=== PATIENT | female | born 1970 | race African-American/Black ===

== ENCOUNTER → 2016-03-04 | Emergency (ER) | payer OTHER ==
[~2016-03-04] MED LIST: FAMOTIDINE 20 MG/50 ML IVPB 50 ML IVPB ONE; ONDANSETRON 4 MG/2 ML VIAL IVPUSH ONE; ONDANSETRON 4 MG/2 ML VIAL ONE; SODIUM CHLORIDE 1,000 ML IV ONE
[2016-03-04 13:03] VITALS: BMI 23.0
--- NOTE | 2016-03-04 13:28 | PDOC ---
History of Present Illness - General History Source: Patient Exam Limitations: No Limitations - History of Present Illness Initial Comments: 03/04/16 13:56 The patient is a 45-year-old woman with no past medical history who presents to the emergency department via walk-in for further evaluation of abdominal pain since last night. Patient states that she experienced a sudden onset of intermittent abdominal cramping with associated nausea, vomiting (non-bloody;non -bilious) and loose watery stools(reported 6 episodes). Patient reports a decreased appetite, as she vomits everything she eats. No new foods and recent travel. 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 Patient presents to the ER, as she state her symptoms have worsened as she now feels generally fatigued and dizzy. She denies fever, chills, diaphoresis, generalized weakness. She denies chest pain, shortness of breath, cough She denies headache, visual changes, neck pain, back pain. She denies dysuria, hematuria, urinary frequency and urgency, flank pain, vaginal discharge/vaginal bleeding Allergies: None Known Past Surgical History: None reported Social History: No tobacco, ETOH and recreational drug use Primary Care Physician: Lauren Acosta [phone] <Kia Ye - Last Filed: 03/04/16 14:12> <Rei River - Last Filed: 03/04/16 15:51> - General Chief Complaint: Vomiting/Diarrhea Stated Complaint: VOMIT, DIARRHEA, ABD PAIN Time Seen by Provider: 03/04/16 13:26 Past History <Kia Ye - Last Filed: 03/04/16 14:12> - Past Medical History Other medical history: NONE - Psycho/Social/Smoking Cessation Hx Suicidal Ideation: No Smoking History: Smoker current status UNK Have you smoked in the past 12 months: No Hx Alcohol Use: No Drug/Substance Use Hx: No Substance Use Type: None <Rei River - Last Filed: 03/04/16 15:51> - Past Medical History Allergies/Adverse Reactions: Allergies Allergy/AdvReac Type Severity Reaction Status Date / Time No Known Allergies Allergy Verified 03/04/16 13:02 Home Medications: Ambulatory Orders Ferrous Sulfate 325 mg PO DAILY 10/11/15 [id number]/Iron Fumarate/FA/Dss [ 19 Tablet] 1 each PO DAILY 10/11/15 Review of Systems - Review of Systems Constitutional: Yes: Chills. No: Fever Respiratory: No: Cough, Shortness of Breath Cardiac (ROS): No: Chest Pain ABD/GI: Yes: Diarrhea, Nausea, Vomiting : No: Dysuria All Other Systems: Reviewed and Negative <Rei River - Last Filed: 03/04/16 15:51> *Physical Exam - Vital Signs Last Vital Signs Temp Pulse Resp BP Pulse Ox 97.2 F L 85 20 109/64 100 03/04/16 13:00 03/04/16 13:00 03/04/16 13:00 03/04/16 13:00 03/04/16 13:00 - Physical Exam Comments: 03/04/16 13:56 GENERAL: The patient is awake, alert, and fully oriented, in no acute distress. HEAD: Normal with no signs of trauma. EYES: Pupils equal, round and reactive to light, extraocular movements intact, sclera anicteric, conjunctiva clear with no pallor. ENT: Ears normal, nares patent, oropharynx clear without exudates. Moist mucous membranes. NECK: Normal range of motion, supple without lymphadenopathy, JVD, or masses. LUNGS: Breath sounds equal, clear to auscultation bilaterally. No wheeze/ crackles. HEART: Tachycardic, regular rate and rhythm, normal S1 and S2 without murmur or rub. ABDOMEN: Soft. There is some diffuse abdominal discomfort but no focal tenderness. Nondistended. BS wnl. No guarding or rebound. No palpable masses. No hepatosplenomegaly. EXTREMITIES: Normal range of motion, no edema. No clubbing or cyanosis. No cords, erythema, or tenderness. NEUROLOGICAL: Cranial nerves II through XII grossly intact. Normal speech. PSYCH: Normal mood, normal affect. SKIN: Warm, Dry, normal turgor, no rashes or lesions noted <Kia Ye - Last Filed: 03/04/16 14:12> - Vital Signs Last Vital Signs Temp Pulse Resp BP Pulse Ox 97.2 F L 85 20 109/64 100 03/04/16 13:00 03/04/16 13:00 03/04/16 13:00 03/04/16 13:00 03/04/16 13:00 <Rei River - Last Filed: 03/04/16 15:51> ED Treatment Course - LABORATORY CBC & Chemistry Diagram: 03/04/16 14:40 03/04/16 14:40 <Rei River - Last Filed: 03/04/16 15:51> Medical Decision Making - Medical Decision Making 03/04/16 14:06 A portion of this note was documented by scribe services under my direction. I have reviewed the details of the note, within reason, and agree with the documentation with the following case summary and management plan written by me. Healthy 45-year-old female presents with nausea/vomiting/diarrhea/generalized crampy abdominal pain since last night, associated with chills. No localizing or persistent abdominal pain, last emesis was about one hour ago. 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 Vital signs normal. Diffuse discomfort to palpation without guarding or rebound, no right upper quadrant or right lower quadrant tenderness specifically 45-year-old healthy female with gastroenteritis-type symptoms, no findings to suggest focal infectious process. Vital signs are normal. No red flags on history or physical exam. IV fluid rehydration, antiemetic, antacid Reassess 03/04/16 14:23 Urine incidentally positive. Pt unaware. Will check labs, beta level. Reassess 03/04/16 15:43 Labs are within normal limits, patient looks and feels well, is sitting up smiling and tolerating by mouth. Abdomen is benign. HCG is 88, too early to see anything on ultrasound. Unclear LMP. Agrees with d/c plan, understands need to f/u beta as outpt. No bleeding/pain, emergent sono not indicated. Understands return criteria. <Rei River - Last Filed: 03/04/16 15:51> *DC/Admit/Observation/Transfer <Kia Ye - Last Filed: 03/04/16 14:12> <Rei River - Last Filed: 03/04/16 15:51> Diagnosis at time of Disposition: Gastroenteritis Qualifiers: Weeks of gestation: unspecified Qualified Code(s): Z33.1 - state, incidental - Discharge Dispostion Disposition: HOME Condition at time of disposition: Improved - Referrals Referrals: Lauren Williamson MD [Primary Care Provider] - - Patient Instructions Printed Discharge Instructions: DI for Viral Gastroenteritis -- Adult, Managing Symptoms of Additional Instructions: Activity as tolerated. Stay hydrated. Your symptoms are likely due to a viral intestinal infection. Blood tests showed no acute abnormalities. As discussed, it appears that you have a very early ! The hormone level (hCG) is 88, and this needs to be repeated within the next week. You should follow up with your primary doctor and [facility] as soon as possible regarding today's emergency department visit. Return to the emergency department for any new or concerning symptoms, particularly persistent vomiting or dehydration, abdominal pain, vaginal bleeding or discharge.
[2016-03-04 14:55] LABS: BASOPHIL 0.4 % (0-2.0); MCH 21.2 pg (25.7-33.7); MCHC 31.8 g/dl (32.0-36.0); MEAN CELL VOLUME 66.7 fl (80-96); MEAN PLT VOLUME 9.5 fl (7.5-11.1); NEUTROPHILS 77.4 % (42.8-82.8); PLATELET COUNT 148 K/MM3 (134-434); RDW 14.6 % (11.6-15.6); WHITE BLOOD COUNT 4.6 K/mm3 (4.0-10.0)
[2016-03-04 15:25] LABS: ALBUMIN 3.6 g/dl (3.4-5.0); ANION GAP 8 (8-16); BILIRUBIN,TOTAL 0.5 mg/dL (0.2-1.0); CALCIUM 8.2 mg/dL (8.5-10.1); CO2 26 mmol/L (21-32); CREATININE 0.6 mg/dL (0.55-1.02); GLUCOSE,RANDOM 81 mg/dL (74-106); SGOT/AST 21 U/L (15-37); SGPT/ALT 30 U/L (12-78); TOT PROT 6.7 g/dl (6.4-8.2)
[2016-03-04 15:28] LABS: ALK PHOS 48 U/L (45-117)
[2016-03-04 15:57] VITALS: BP 135/80; PULSE 71; TEMP 98.3
[2016-03-04 18:48] LABS: ANISOCYTOSIS 2+; HYPOCHROMIA 2+; MICROCYTOSIS 2+
== END | disposition home or self-care (01) ==
LOC: JER 12:48
PROC: 3E033GC Introduction of Other Therapeutic Substance into Peripheral Vein, Percutaneous Approach (ICD-10-PCS; principal; 2016-03-04)
PROC: 3E0337Z Introduction of Electrolytic and Water Balance Substance into Peripheral Vein, Percutaneous Approach (ICD-10-PCS; 2016-03-04)
DX: K52.9 Noninfective gastroenteritis and colitis, unspecified (principal); Z33.1 Pregnant state, incidental
CPT/HCPCS: 36415; 80053; 84702; 84703; 85025; 96361; 96365; 96375; 99283-25

== ENCOUNTER → 2016-11-23 | Day surgery (SDC) | payer OTHER ==
--- NOTE | 2016-11-24 17:53 | PATH ---
Cytology Non-Gynecological Report Patient Name: JAN PAL [facility]. Rec. #: [id number] /Age/Gender: 1970 (Age: 45) / F Account: [id number] Location: RADIOLOGY Taken: 11/23/2016 Received: 11/23/2016 Reported: 11/24/2016 Physicians: Era Vazquez M.D. Specimen(s) Received RIGHT ISTHMUS Clinical History Right isthmus 1.80 x 1.11 x 0.64 cm Final Diagnosis THYROID, RIGHT ISTHMUS, FINE NEEDLE ASPIRATION: SATISFACTORY FOR EVALUATION BETHESDA CATEGORY II: BENIGN (NO MALIGNANT CELLS IDENTIFIED) CYTOLOGIC FINDINGS ARE CONSISTENT WITH A BENIGN FOLLICULAR NODULE (ADENOMATOID NODULE) BENIGN FOLLICULAR CELLS AND COLLOID PRESENT. Comment: Recommend correlation with clinical findings and follow up as clinically indicated. Electronically Signed Anastacio Jones M.D. Gross Description Received are eight direct smears, four of which are air-dried and Diff-Quik stained, and four of which are alcohol fixed and Pap stained. Also received is 20 ml of bloody formalin from which one cellblock is prepared.
== END | disposition home or self-care (01) ==
LOC: JRADIR 09:43
PROVIDERS: ATTEND Otolaryngology Facial Plastic Surgery
PROC: 0G9K3ZX Drainage of Thyroid Gland, Percutaneous Approach, Diagnostic (ICD-10-PCS; principal; 2016-11-23)
PROC: BG43ZZZ Ultrasonography of Parathyroid Glands (ICD-10-PCS; 2016-11-23)
DX: E04.1 Nontoxic single thyroid nodule (principal)
CPT/HCPCS: 76942; 88173; 88305-TC

== ENCOUNTER → 2016-12-01 | Day surgery (SDC) | payer OTHER ==
--- NOTE | 2016-12-03 09:07 | PATH ---
Cytology Non-Gynecological Report Patient Name: JAN PAL [facility]. Rec. #: [id number] /Age/Gender: 1970 (Age: 45) / F Account: [id number] Location: RADIOLOGY Taken: 12/01/2016 Received: 12/01/2016 Reported: 12/03/2016 Physicians: Era Adorno M.D. Specimen(s) Received RIGHT THYROID FNA Clinical History Right nodule, 1.2 x 0.9 x 0.58 cm Final Diagnosis THYROID, RIGHT, FINE NEEDLE ASPIRATION: SATISFACTORY FOR EVALUATION BETHESDA CLASS II: BENIGN. CYTOLOGIC FINDINGS ARE CONSISTENT WITH A BENIGN FOLLICULAR NODULE. FEW CLUSTERS OF BENIGN FOLLICULAR CELLS AND SCANT COLLOID PRESENT. Electronically Signed Shirlene Gross M.D. Gross Description Received are eight direct smears, four of which are air-dried and Diff-Quik stained, and four of which are alcohol fixed and Pap stained. Also received is 20 ml of bloody formalin from which one cellblock is prepared.
== END | disposition home or self-care (01) ==
LOC: JRADIR 09:06
PROVIDERS: ATTEND Otolaryngology Facial Plastic Surgery
PROC: 0G9H3ZX Drainage of Right Thyroid Gland Lobe, Percutaneous Approach, Diagnostic (ICD-10-PCS; principal; 2016-12-01)
DX: E04.1 Nontoxic single thyroid nodule (principal)
CPT/HCPCS: 76942; 88173; 88305-TC

== ENCOUNTER 2017-04-22 11:38 | Emergency (ER) | payer OTHER ==
[2017-04-22 11:53] VITALS: BP 98/66; PULSE 89; TEMP 97.7; BMI 24.9
[2017-04-22 12:35] LABS: HCG,QUALITATIVE URINE NEGATIVE
[2017-04-22 12:36] LABS: URINE APPEARANCE CLEAR; URINE BILIRUBIN NEGATIVE (NEGATIVE); URINE BLOOD NEGATIVE (NEGATIVE); URINE COLOR LTYELLOW; URINE GLUCOSE (UA) NEGATIVE (NEGATIVE); URINE KETONE NEGATIVE (NEGATIVE); URINE LEUK ESTERASE NEGATIVE (NEGATIVE); URINE NITRITE NEGATIVE (NEGATIVE); URINE PROTEIN NEGATIVE (NEGATIVE); URINE UROBILINOGEN NEGATIVE mg/dL (0.2-1.0)
[2017-04-22] MEDS ORDERED: PANTOPRAZOLE SODIUM 40 MG in SODIUM CHLORIDE 100 ML IVPB ONE (12:37)
[2017-04-22] MEDS ORDERED: ONDANSETRON 4 MG/2 ML VIAL IVPUSH ONE (12:37)
[2017-04-22] MEDS ORDERED: SODIUM CHLORIDE 1,000 ML IV STA (12:37)
[2017-04-22 12:56] LABS: BASO % 0.7 % (0-2.0); EOS % 5.4 % (0-4.5); HEMATOCRIT 30.5 % (32.4-45.2); HEMOGLOBIN 9.8 GM/dL (10.7-15.3); LYMPH % 30.4 % (8-40); MCHC 32.2 g/dl (32.0-36.0); MONO % 18.7 % (3.8-10.2); NEUT % 44.8 % (42.8-82.8); PLATELET COUNT 180 K/MM3 (134-434); RBC 4.68 M/mm3 (3.60-5.2); RDW 16.5 % (11.6-15.6); WHITE BLOOD COUNT 2.1 K/mm3 (4.0-10.0)
[2017-04-22] MEDS ORDERED: ONDANSETRON 4 MG/2 ML VIAL ONE (12:56)
[2017-04-22] MEDS ORDERED: PANTOPRAZOLE SODIUM 40 MG VIAL ONE (12:56)
--- NOTE | 2017-04-22 13:22 | PDOC ---
History of Present Illness - General Chief Complaint: Nausea/Vomiting Stated Complaint: FEVER, MIGRAINE HEADACHE, NAUSEA Time Seen by Provider: 04/22/17 12:09 History Source: Patient Exam Limitations: No Limitations - History of Present Illness Travel History: No Initial Comments: 04/22/17 12:09 46 year-old female presents to the ED with complaints of subjective fevers for the past 3 days accompanied with nausea, vomiting and episodes of brown watery diarrhea. Patient denies weakness, headache, abdominal pain, urinary complaints or irregular menses. 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 Patient denies recent travel, medical history or recent illness. Timing/Duration: reports: intermittent Aggravating Factors: improves with: None Alleviating Factors: improves with: None Past History - Past Medical History Allergies/Adverse Reactions: Allergies Allergy/AdvReac Type Severity Reaction Status Date / Time No Known Allergies Allergy Verified 04/22/17 11:49 Home Medications: Ambulatory Orders Ondansetron HCl [Zofran] 4 mg PO TID PRN #12 tablet 04/22/17 COPD: No - Immunization History Immunization Up to Date: Yes - Suicide/Smoking/Psychosocial Hx Smoking History: Smoker current status UNK Have you smoked in the past 12 months: No Hx Alcohol Use: No Drug/Substance Use Hx: No Substance Use Type: None Patient Lives Alone: No Lives with/in: spouse/SO Review of Systems - Review of Systems Able to Perform ROS?: No Constitutional: No: Symptoms Reported HEENTM: No: Symptoms Reported Respiratory: No: Symptoms reported Cardiac (ROS): No: Symptoms Reported ABD/GI: Yes: Diarrhea, Nausea, Vomiting Musculoskeletal: No: Symptoms Reported Integumentary: No: Symptoms Reported Neurological: No: Symptoms reported *Physical Exam - Vital Signs Last Vital Signs Temp Pulse Resp BP Pulse Ox 97.7 F 89 18 98/66 100 04/22/17 11:49 04/22/17 11:49 04/22/17 11:49 04/22/17 11:49 04/22/17 11:49 - Physical Exam General Appearance: Yes: Nourished, Appropriately Dressed. No: Apparent Distress Neck: positive: Normal Thyroid, Supple Respiratory/Chest: positive: Lungs Clear, Normal Breath Sounds. negative: Respiratory Distress, Accessory Muscle Use Cardiovascular: positive: Regular Rhythm, Regular Rate. negative: Murmur Gastrointestinal/Abdominal: positive: Soft. negative: Tenderness Integumentary: positive: Normal Color, Warm, Moist Neurologic: positive: Motor Strength 5/5 (ambulatory) ED Treatment Course - LABORATORY CBC & Chemistry Diagram: 04/22/17 12:54 04/22/17 12:54 - ADDITIONAL ORDERS Additional order review: Laboratory Results 04/22/17 12:24 Urine Color Ltyellow Urine Appearance Clear Urine pH 7.0 D Ur Specific [place] 1.017 Urine Protein Negative Urine Glucose (UA) Negative Urine Ketones Negative Urine Blood Negative Urine Nitrite Negative Urine Bilirubin Negative Urine Urobilinogen Negative Ur Leukocyte Esterase Negative Urine HCG, Qual Negative 04/22/17 12:54 RBC 4.68 MCV 65.0 L MCHC 32.2 RDW 16.5 H D MPV 9.0 Neutrophils % 44.8 D Lymphocytes % 30.4 D Monocytes % 18.7 H D Eosinophils % 5.4 H D Basophils % 0.7 - Medications Given in the ED: ED Medications Discontinued Medications Generic Name Dose Route Start Last Admin Trade Name Freq PRN Reason Stop Dose Admin Pantoprazole Sodium 40 mg/ 100 mls @ 200 mls/hr 04/22/17 12:37 04/22/17 13:01 Sodium Chloride IVPB 04/22/17 13:06 200 mls/hr ONCE ONE Administration Ondansetron HCl 4 mg 04/22/17 12:37 04/22/17 13:01 Zofran Injection IVPUSH 04/22/17 12:38 4 mg ONCE ONE Administration Medical Decision Making - Medical Decision Making 04/22/17 13:28 Patient with nausea vomiting and diarrhea so she did with subjective fever for the past few days. Patient on exam had no abdominal tenderness or abnormal vital signs. Differential diagnoses: gastroenteritis, gastritis, cholecystitis, , an electrolyte imbalance. 04/22/17 13:38 Laboratory Tests 10/12/15 03/04/16 04/22/17 00:18 14:40 12:24 WBC 5.6 4.6 Hgb 11.2 10.8 Hct 34.0 RDW Neutrophils % Sodium Potassium Chloride Carbon Dioxide Anion Gap BUN Creatinine Random Glucose Calcium Magnesium AST ALT Lipase Urine Ketones Negative Urine Nitrite Negative Urine HCG, Qual Negative 04/22/17 04/22/17 12:54 12:54 WBC 2.1 L D Hgb Hct 30.5 L RDW 16.5 H D Neutrophils % 44.8 D Sodium 141 Potassium 4.0 Chloride 107 Carbon Dioxide 28 Anion Gap 6 L BUN 9 Creatinine 0.6 Random Glucose 92 Calcium 8.8 Magnesium 2.0 AST 20 ALT 20 Lipase 339 Urine Ketones Urine Nitrite Urine HCG, Qual Patient states history of fibroids and just completed her menses which she states was approximately 10 days long but denies dizziness or weakness presently. Patient also states is supposed to be taking iron for her anemia but often does not take it secondary to constipation and abdominal pain 04/22/17 15:03 Patient states feeling much better and tolerated saltine crackers without complaints. Patient will be discharged, Zofran and a work note for tomorrow *DC/Admit/Observation/Transfer Diagnosis at time of Disposition: Gastroenteritis - Discharge Dispostion Disposition: HOME Condition at time of disposition: Improved - Prescriptions Prescriptions: Ondansetron HCl [Zofran] 4 mg PO TID PRN #12 tablet PRN Reason: Nausea And/Or Vomiting - Referrals Referrals: ON STAFF,NOT [Primary Care Provider] - - Patient Instructions Printed Discharge Instructions: DI for Iron Deficiency Anemia-Adult, DI for Vomiting -- Adult Additional Instructions: Please take Zofran as needed for nausea. Please eat bland food for the next 2 days and advance as tolerated. Please also follow-up with your doctor and take copy of your labs with you. Please also take your iron pills as previously prescribed. - Post Discharge Activity Forms/Work/School Notes: Back to Work
[2017-04-22 13:26] LABS: ALBUMIN 3.4 g/dl (3.4-5.0); ANION GAP 6 (8-16); BLOOD UREA NITROGEN 9 mg/dL (7-18); CALCIUM 8.8 mg/dL (8.5-10.1); CHLORIDE 107 mmol/L (98-107); CO2 28 mmol/L (21-32); CREATININE 0.6 mg/dL (0.55-1.02); GLUCOSE,RANDOM 92 mg/dL (74-106); SGOT/AST 20 U/L (15-37); SGPT/ALT 20 U/L (12-78); SODIUM 141 mmol/L (136-145)
[2017-04-22 13:28] LABS: ALK PHOS 46 U/L (45-117); BILIRUBIN,TOTAL 0.3 mg/dL (0.2-1.0); TOT PROT 6.6 g/dl (6.4-8.2)
[2017-04-22 13:35] LABS: LIPASE 339 U/L (73-393)
== END 2017-04-22 15:07 | disposition home or self-care (01) ==
LOC: JER 11:38
PROC: 3E033GC Introduction of Other Therapeutic Substance into Peripheral Vein, Percutaneous Approach (ICD-10-PCS; principal; 2017-04-22)
PROC: 3E033NZ Introduction of Analgesics, Hypnotics, Sedatives into Peripheral Vein, Percutaneous Approach (ICD-10-PCS; 2017-04-22)
PROC: 3E0337Z Introduction of Electrolytic and Water Balance Substance into Peripheral Vein, Percutaneous Approach (ICD-10-PCS; 2017-04-22)
DX: K52.9 Noninfective gastroenteritis and colitis, unspecified (principal)
CPT/HCPCS: 36415; 80053; 81003; 83690; 83735; 84703; 85025; 99283-25

== ENCOUNTER 2018-03-28 10:54 | Emergency (ER) | payer OTHER ==
[2018-03-28 11:08] VITALS: BMI 24.3
[2018-03-28] MEDS ORDERED: SODIUM CHLORIDE 1,000 ML IV STA (11:22)
[2018-03-28] MEDS ORDERED: ACETAMINOPHEN 1000 MG/100 ML VIAL (NON FORMULARY) IVPB ONE (11:22)
--- NOTE | 2018-03-28 11:27 | PDOC ---
History of Present Illness - General Chief Complaint: Vaginal Bleeding Stated Complaint: VAGINAL BLEEDING (10WKS ) Time Seen by Provider: 03/28/18 11:15 - History of Present Illness Initial Comments: 03/28/18 11:22 47 F , @ 10 weeks by LMP, with h/o fibroids, presenting to ED with vaginal bleeding and lower abdominal cramps. Pt states that for the past 2 weeks she has been bleeding. Initially started with spotting but gradually worsened. Pt now reports going through about 3 pads per day. Denies any large clots passed. Reports suprapubic pain that is constant. Denies flank pain. Denies upper abdominal pain. Denies N/V. Denies CP/SOB. Denies F/C. Pt reports 2 prior miscarriages. Denies dysuria. Pt notes that she took motrin a few days ago for her migraine. Past History - Past Medical History Allergies/Adverse Reactions: Allergies Allergy/AdvReac Type Severity Reaction Status Date / Time No Known Allergies Allergy Verified 03/28/18 11:08 Home Medications: Ambulatory Orders Ondansetron HCl [Zofran] 4 mg PO TID PRN #12 tablet 04/22/17 COPD: No - Immunization History Immunization Up to Date: Yes - Suicide/Smoking/Psychosocial Hx Smoking History: Never smoked Have you smoked in the past 12 months: No Information on smoking cessation initiated: No Hx Alcohol Use: No Drug/Substance Use Hx: No Substance Use Type: None Review of Systems - Review of Systems Comments:: 03/28/18 11:26 "GENERAL/CONSTITUTIONAL: No fever or chills. No weakness. HEAD, EYES, EARS, NOSE AND THROAT: No change in vision. No ear pain or discharge. No sore throat. CARDIOVASCULAR: No chest pain, no shortness of breath, no loss of consciousness RESPIRATORY: No cough, wheezing, or hemoptysis. GASTROINTESTINAL: No nausea, vomiting, diarrhea or constipation. GENITOURINARY: + vaginal bleeding + suprapubic cramps, No dysuria, frequency, or change in urination. MUSCULOSKELETAL: No joint or muscle swelling or pain. No neck or back pain. SKIN: No rash NEUROLOGIC: No vertigo, no change in strength/sensation. ENDOCRINE: No increased thirst. No abnormal weight change. HEMATOLOGIC/LYMPHATIC: No anemia, easy bleeding, or history of blood clots. ALLERGIC/IMMUNOLOGIC: No hives or skin allergy. *Physical Exam - Vital Signs Last Vital Signs Temp Pulse Resp BP Pulse Ox 97.8 F 78 16 98/67 100 03/28/18 11:04 03/28/18 11:04 03/28/18 11:04 03/28/18 11:04 03/28/18 11:04 - Physical Exam Comments: 03/28/18 11:27 "GENERAL: Awake, alert, and fully oriented, in no acute distress. HEAD: No signs of trauma EYES: PERRLA, EOMI, sclera anicteric, conjunctiva clear ENT: Auricles normal inspection, hearing grossly normal, nares patent, oropharynx clear without exudates. Moist mucosa NECK: Nontender, no stepoffs, Normal ROM, supple, no lymphadenopathy, JVD, or masses LUNGS: Breath sounds equal, clear to auscultation bilaterally. No wheezes, and no crackles HEART: Regular rate and rhythm, normal S1 and S2, no murmurs, rubs or gallops ABDOMEN: + mild suprapubic tenderness, +palpable uterus, normoactive bowel sounds. No guarding, no rebound. No masses EXTREMITIES: Normal range of motion, no edema. No clubbing or cyanosis. No cords, erythema, or tenderness NEUROLOGICAL: Cranial nerves II through XII intact. 5/5 strength and sensation in all extremities, Normal speech, normal gait, normal cerebellar function SKIN: Warm, Dry, normal turgor, no rashes or lesions noted. : os closed, no CMT, + blood in vault, + large uterus, no adnexal tenderness Moderate Sedation - Procedure Monitoring Vital Signs: Procedure Monitoring Vital Signs Temperature 97.8 F 03/28/18 11:04 Pulse Rate 78 03/28/18 11:04 Respiratory Rate 16 03/28/18 11:04 Blood Pressure 98/67 03/28/18 11:04 O2 Sat by Pulse Oximetry (%) 100 03/28/18 11:04 ED Treatment Course - LABORATORY CBC & Chemistry Diagram: 03/28/18 12:50 03/28/18 12:50 - RADIOLOGY Radiology Studies Ordered: Category Date Time Status TRANSVAGINAL ULTRASOUND US [US] Stat Ultrasound 03/28/18 11:16 Ordered Medical Decision Making - Medical Decision Making 03/28/18 11:27 47 F @ 10 weeks by LMP presenting with 2 weeks of vaginal bleeding. Exam notable for uterus larger than estimated gestational age, possibly 2/2 fibroids. - Labs, T&S, HCG - TVUS - IVF, tylenol 03/28/18 16:28 Labs wnl TVUS shows large leiomyoma and single viable at 11 weeks. Pt to f/u with OB Pt is well appearing, with normal vitals. Clinically stable for DC at this time. I discussed the physical exam findings, ancillary test results and final diagnoses with the patient. I answered all of the patient's questions. The patient was satisfied with the care received and felt comfortable with the discharge plan and treatment plan. The patient agrees to follow up with the primary care physician within 24-72 hours. *DC/Admit/Observation/Transfer Diagnosis at time of Disposition: Vaginal bleeding during - Discharge Dispostion Disposition: HOME - Referrals - Patient Instructions Printed Discharge Instructions: DI for Vaginal Bleeding During Additional Instructions: Your ultrasound today showed a at 11 weeks and 5 days. You also have a very large fibroid in your uterus. If you experience any worsening bleeding, pain, or any other concerning symptoms , return to the ER immediately. 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 Do NOT take any more ibuprofen for pain. Take tylenol only as needed. - Post Discharge Activity - Attestations Physician Attestion: 03/28/18 16:30 I, Dr. Chip Sauceda MD, attest that this document has been prepared under my direction and personally reviewed by me in its entirety. I further attest, that it accurately reflects all work, treatment, procedures and medical decision -making performed by me.
[2018-03-28] MEDS ORDERED: ACETAMINOPHEN INJECTION 100 ML IVPB ONE (12:36)
[2018-03-28 13:02] LABS: BASO % 0.5 % (0-2.0); EOS % 2.5 % (0-4.5); HEMATOCRIT 35.3 % (32.4-45.2); HEMOGLOBIN 11.6 GM/dL (10.7-15.3); LYMPH % 14.9 % (8-40); MCH 22.4 pg (25.7-33.7); MEAN CELL VOLUME 67.9 fl (80-96); MEAN PLT VOLUME 9.2 fl (7.5-11.1); MONO % 9.4 % (3.8-10.2); NEUT % 72.7 % (42.8-82.8); PLATELET COUNT 202 K/MM3 (134-434); RBC 5.19 M/mm3 (3.60-5.2); RDW 15.2 % (11.6-15.6); WHITE BLOOD COUNT 4.7 K/mm3 (4.0-10.0)
[2018-03-28 13:03] LABS: URINE APPEARANCE CLEAR; URINE BILIRUBIN NEGATIVE (<2.0 mg/dL); URINE COLOR LTYELLOW; URINE GLUCOSE (UA) NEGATIVE (NEGATIVE); URINE KETONE NEGATIVE (NEGATIVE); URINE LEUK ESTERASE NEGATIVE (NEGATIVE); URINE NITRITE NEGATIVE (NEGATIVE); URINE PROTEIN NEGATIVE (NEGATIVE); URINE UROBILINOGEN NEGATIVE mg/dL (0.2-1.0)
[2018-03-28 13:20] LABS: EPI CELLS RARE /HPF (FEW); URINE MUCUS RARE
[2018-03-28 14:00] LABS: ALBUMIN 3.6 g/dl (3.4-5.0); ALK PHOS 61 U/L (45-117); ANION GAP 5 MMOL/L (8-16); BILIRUBIN,TOTAL 0.2 mg/dL (0.2-1); BLOOD UREA NITROGEN 7 mg/dL (7-18); CALCIUM 8.7 mg/dL (8.5-10.1); CHLORIDE 106 mmol/L (98-107); CO2 27 mmol/L (21-32); CREATININE 0.5 mg/dL (0.55-1.3); GLUCOSE,RANDOM 81 mg/dL (74-106); POTASSIUM 3.5 mmol/L (3.5-5.1); SGOT/AST 16 U/L (15-37); SGPT/ALT 17 U/L (13-61); SODIUM 137 mmol/L (136-145); TOT PROT 7.7 g/dl (6.4-8.2)
[2018-03-28 17:34] VITALS: BP 109/61; PULSE 69; TEMP 97.9
== END 2018-03-28 17:34 | disposition home or self-care (01) ==
LOC: JER 10:54
PROC: 3E033NZ Introduction of Analgesics, Hypnotics, Sedatives into Peripheral Vein, Percutaneous Approach (ICD-10-PCS; principal; 2018-03-28)
DX: O26.891 Other specified pregnancy related conditions, first trimester (principal); O20.8 Other hemorrhage in early pregnancy; O34.11 Maternal care for benign tumor of corpus uteri, first trimester; D25.9 Leiomyoma of uterus, unspecified; Z3A.11 11 weeks gestation of pregnancy
CPT/HCPCS: 36415; 76801-TC; 80053; 81003; 81015; 84702; 85025; 86850; 86900; 86901; 87077; 87086; 96374; 99282-25; J0131; J7030

== ENCOUNTER 2018-04-29 08:32 | Emergency (ER) | payer OTHER ==
[2018-04-29 08:38] VITALS: BMI 24.0
[2018-04-29] MEDS ORDERED: ACETAMINOPHEN 1000 MG/100 ML VIAL (NON FORMULARY) IVPB ONE (08:57)
[2018-04-29] MEDS ORDERED: SODIUM CHLORIDE 1,000 ML IV STA (08:57)
--- NOTE | 2018-04-29 08:57 | PDOC ---
History of Present Illness - General Chief Complaint: Vaginal Bleeding Stated Complaint: BLEEDING Time Seen by Provider: 04/29/18 08:42 - History of Present Illness Initial Comments: 04/29/18 08:57 47 F , who recently had spontaneous Ab last week, presents to ED with vaginal bleeding. Pt states that last Wednesday, when she was approximately 14 weeks gestation, she had an US that showed no heartbeat. Pt was scheduled for DNC this week. However, pt states that last Wednesday, she started bleeding and passed a large clot. The bleeding continued for a few days before resolving completely. Pt states that today she started bleeding again and passed another clot. She denies any abdominal pain. Denies F/C. Past History - Past Medical History Allergies/Adverse Reactions: Allergies Allergy/AdvReac Type Severity Reaction Status Date / Time No Known Allergies Allergy Verified 04/29/18 08:33 Home Medications: Ambulatory Orders Ferrous Sulfate 325 mg PO DAILY 04/29/18 COPD: No - Immunization History Immunization Up to Date: Yes - Suicide/Smoking/Psychosocial Hx Smoking History: Never smoked Have you smoked in the past 12 months: No Hx Alcohol Use: No Drug/Substance Use Hx: No Substance Use Type: None Review of Systems - Review of Systems Comments:: 04/29/18 09:10 "GENERAL/CONSTITUTIONAL: No fever or chills. No weakness. HEAD, EYES, EARS, NOSE AND THROAT: No change in vision. No ear pain or discharge. No sore throat. CARDIOVASCULAR: No chest pain, no shortness of breath, no loss of consciousness RESPIRATORY: No cough, wheezing, or hemoptysis. GASTROINTESTINAL: No nausea, vomiting, diarrhea or constipation. GENITOURINARY: + vaginal bleeding, No dysuria, frequency, or change in urination. MUSCULOSKELETAL: No joint or muscle swelling or pain. No neck or back pain. SKIN: No rash NEUROLOGIC: No vertigo, no change in strength/sensation. ENDOCRINE: No increased thirst. No abnormal weight change. HEMATOLOGIC/LYMPHATIC: No anemia, easy bleeding, or history of blood clots. ALLERGIC/IMMUNOLOGIC: No hives or skin allergy. *Physical Exam - Vital Signs Last Vital Signs Temp Pulse Resp BP Pulse Ox 98.2 F 88 18 125/68 98 04/29/18 08:36 04/29/18 08:36 04/29/18 08:36 04/29/18 08:36 04/29/18 08:36 - Physical Exam Comments: 04/29/18 09:11 GENERAL: Awake, alert, and fully oriented, in no acute distress. HEAD: No signs of trauma EYES: PERRLA, EOMI, sclera anicteric, conjunctiva clear ENT: Auricles normal inspection, hearing grossly normal, nares patent, oropharynx clear without exudates. Moist mucosa NECK: Nontender, no stepoffs, Normal ROM, supple, no lymphadenopathy, JVD, or masses LUNGS: Breath sounds equal, clear to auscultation bilaterally. No wheezes, and no crackles HEART: Regular rate and rhythm, normal S1 and S2, no murmurs, rubs or gallops ABDOMEN: Soft, nontender, normoactive bowel sounds. No guarding, no rebound. No masses EXTREMITIES: Normal range of motion, no edema. No clubbing or cyanosis. No cords, erythema, or tenderness NEUROLOGICAL: Cranial nerves II through XII intact. 5/5 strength and sensation in all extremities, Normal speech, normal gait, normal cerebellar function SKIN: Warm, Dry, normal turgor, no rashes or lesions noted. : + blood in vault, no CMT, no adnexal tenderness or masses, enlarged uterus, os closed Moderate Sedation - Procedure Monitoring Vital Signs: Procedure Monitoring Vital Signs Temperature 98.2 F 04/29/18 08:36 Pulse Rate 88 04/29/18 08:36 Respiratory Rate 18 04/29/18 08:36 Blood Pressure 125/68 04/29/18 08:36 O2 Sat by Pulse Oximetry (%) 98 04/29/18 08:36 ED Treatment Course - LABORATORY CBC & Chemistry Diagram: 04/29/18 09:40 04/29/18 09:40 - RADIOLOGY Radiology Studies Ordered: Category Date Time Status TRANSVAGINAL ULTRASOUND US [US] Stat Ultrasound 04/29/18 08:56 Ordered Medical Decision Making - Medical Decision Making 04/29/18 09:11 47 F with recent spontaneous Ab, presenting to ED with vaginal bleeding. Concerning for retained POCs. - Labs - TVUS 04/29/18 12:16 Labs wnl US shows no retained POCs Pt reassessed - still with minimal bleeding, otherwise asymptomatic Pt is well appearing, with normal vitals. Clinically stable for DC at this time. I discussed the physical exam findings, ancillary test results and final diagnoses with the patient. I answered all of the patient's questions. The patient was satisfied with the care received and felt comfortable with the discharge plan and treatment plan. The patient agrees to follow up with the primary care physician within 24-72 hours. *DC/Admit/Observation/Transfer Diagnosis at time of Disposition: Vaginal bleeding, abnormal - Discharge Dispostion Disposition: HOME - Referrals - Patient Instructions Printed Discharge Instructions: DI for Miscarriage Additional Instructions: Your ultrasound did not show anything inside the uterus. Follow up with your OB within 1 week. If you experience worsening bleeding, pain, fevers, lightheadedness, dizziness, or any other concerning symptoms, return to the ER immediately. - Post Discharge Activity Forms/Work/School Notes: Back to Work - Attestations Physician Attestion: 04/29/18 12:17 I, Dr. Chip Sauceda MD, attest that this document has been prepared under my direction and personally reviewed by me in its entirety. I further attest, that it accurately reflects all work, treatment, procedures and medical decision -making performed by me.
[2018-04-29] MEDS ORDERED: ACETAMINOPHEN INJECTION 100 ML IVPB ONE (09:26)
[2018-04-29 09:52] LABS: BASO % 0.8 % (0-2.0); EOS % 19.8 % (0-4.5); HEMATOCRIT 30.4 % (32.4-45.2); HEMOGLOBIN 10.1 GM/dL (10.7-15.3); LYMPH % 23.2 % (8-40); MCH 22.7 pg (25.7-33.7); MCHC 33.1 g/dl (32.0-36.0); MEAN CELL VOLUME 68.6 fl (80-96); MONO % 8.6 % (3.8-10.2); NEUT % 47.6 % (42.8-82.8); PLATELET COUNT 177 K/MM3 (134-434); RBC 4.43 M/mm3 (3.60-5.2); RDW 15.7 % (11.6-15.6); WHITE BLOOD COUNT 3.2 K/mm3 (4.0-10.0)
[2018-04-29 10:30] LABS: ALBUMIN 3.4 g/dl (3.4-5.0); ALK PHOS 54 U/L (45-117); ANION GAP 5 MMOL/L (8-16); BILIRUBIN,TOTAL 0.2 mg/dL (0.2-1); BLOOD UREA NITROGEN 9 mg/dL (7-18); CALCIUM 8.9 mg/dL (8.5-10.1); CHLORIDE 108 mmol/L (98-107); CO2 27 mmol/L (21-32); CREATININE 0.6 mg/dL (0.55-1.3); GLUCOSE,RANDOM 87 mg/dL (74-106); SGOT/AST 16 U/L (15-37); SGPT/ALT 16 U/L (13-61); SODIUM 140 mmol/L (136-145); TOT PROT 6.6 g/dl (6.4-8.2)
[2018-04-29 12:47] VITALS: BP 109/76; PULSE 84; TEMP 98.3
== END 2018-04-29 12:48 | disposition home or self-care (01) ==
LOC: JER 08:32
PROC: 3E033NZ Introduction of Analgesics, Hypnotics, Sedatives into Peripheral Vein, Percutaneous Approach (ICD-10-PCS; principal; 2018-04-29)
PROC: 3E0337Z Introduction of Electrolytic and Water Balance Substance into Peripheral Vein, Percutaneous Approach (ICD-10-PCS; 2018-04-29)
DX: N93.9 Abnormal uterine and vaginal bleeding, unspecified (principal)
CPT/HCPCS: 36415; 76830-TC; 80053; 84702; 85025; 86850; 86900; 86901; 96361; 96374; 99283-25; J0131; J7030

== ENCOUNTER 2020-06-28 21:33 | Emergency (ER) | payer SELFPAY ==
[2020-06-28 21:37] VITALS: BP 107/72; PULSE 86; TEMP 97; BMI 24.9
[2020-06-28 22:42] LABS: BASO % 0.8 % (0-2.0); EOS % 7.7 % (0-4.5); HEMATOCRIT 34.9 % (32.4-45.2); HEMOGLOBIN 11.2 GM/dL (10.7-15.3); LYMPH % 27.9 % (8-40); MCH 21.5 pg (25.7-33.7); MCHC 31.9 g/dl (32.0-36.0); MEAN CELL VOLUME 67.4 fl (80-96); MEAN PLT VOLUME 9.8 fl (7.5-11.1); MONO % 8.2 % (3.8-10.2); NEUT % 55.4 % (42.8-82.8); PLATELET COUNT 212 K/MM3 (134-434); RBC 5.19 M/mm3 (3.60-5.2); RDW 15.1 % (11.6-15.6); WHITE BLOOD COUNT 4.9 K/mm3 (4.0-10.0)
[2020-06-28 22:54] LABS: BLOOD UREA NITROGEN 19.5 mg/dL (7-18)
[2020-06-28 22:58] LABS: CREATININE 0.5 mg/dL (0.55-1.3)
[2020-06-28 22:59] LABS: BILIRUBIN,TOTAL 0.2 mg/dL (0.2-1); TOT PROT 7.3 g/dl (6.4-8.2)
[2020-06-28 23:25] LABS: ANISOCYTOSIS 1+; MACROCYTOSIS 0; PLATELET ESTIMATE NORMAL; TARGET CELLS 1+
== END 2020-06-29 00:08 | disposition home or self-care (01) ==
LOC: JER 21:33
DX: N93.8 Other specified abnormal uterine and vaginal bleeding (principal); D25.9 Leiomyoma of uterus, unspecified
CPT/HCPCS: 36415; 76856-TC; 80053; 84703; 85025; 86850; 86900; 86901; 99285-25

== ENCOUNTER 2020-07-09 23:57 | Emergency (ER) | payer OTHER ==
[2020-07-10 00:15] VITALS: BP 140/86; PULSE 80; TEMP 98.6; BMI 32.5
[2020-07-10 01:48] LABS: BASO % 0.6 % (0-2.0); EOS % 8.4 % (0-4.5); HEMATOCRIT 35.8 % (32.4-45.2); HEMOGLOBIN 11.3 GM/dL (10.7-15.3); LYMPH % 14.6 % (8-40); MCH 21.3 pg (25.7-33.7); MCHC 31.7 g/dl (32.0-36.0); MEAN CELL VOLUME 67.3 fl (80-96); MEAN PLT VOLUME 9.8 fl (7.5-11.1); MONO % 6.6 % (3.8-10.2); NEUT % 69.8 % (42.8-82.8); PLATELET COUNT 220 K/MM3 (134-434); RBC 5.32 M/mm3 (3.60-5.2); RDW 15.4 % (11.6-15.6); WHITE BLOOD COUNT 6.1 K/mm3 (4.0-10.0)
[2020-07-10 02:02] LABS: CHLORIDE 103 mmol/L (98-107); SODIUM 138 mmol/L (136-145)
[2020-07-10 02:04] LABS: ALBUMIN 4.1 g/dl (3.4-5.0); ANION GAP 8 MMOL/L (8-16); BLOOD UREA NITROGEN 12.2 mg/dL (7-18); CALCIUM 9.1 mg/dL (8.5-10.1); CO2 27 mmol/L (21-32)
[2020-07-10 02:05] LABS: GLUCOSE,RANDOM 96 mg/dL (74-106)
[2020-07-10 02:07] LABS: CREATININE 0.6 mg/dL (0.55-1.3); SGOT/AST 16 U/L (15-37); SGPT/ALT 25 U/L (13-61)
[2020-07-10 02:09] LABS: BILIRUBIN,TOTAL 0.2 mg/dL (0.2-1); TOT PROT 7.9 g/dl (6.4-8.2)
[2020-07-10 02:10] LABS: ALK PHOS 72 U/L (45-117)
[2020-07-10 03:39] LABS: OVALOCYTE 1+
== END 2020-07-10 06:27 | disposition home or self-care (01) ==
LOC: JER 23:57
DX: R06.02 Shortness of breath (principal)
CPT/HCPCS: 36415; 71046-TC-FY; 71275-TC; 80053; 84484; 84703; 85025; 85379; 93005; 93010; 99285-25; C9803; Q9967; U0003; U0005